=== PATIENT | male | born 1970 | race Caucasian/White ===

== ENCOUNTER → 2016-11-23 | Outpatient (CLI) | payer OTHER ==
--- NOTE | 2016-11-23 13:26 | RAD ---
Right knee, 2 views, 11/23/2016: History: Knee pain, remote injury No fracture or dislocation is identified. No significant arthritic change is evident. The soft tissues are unremarkable. IMPRESSION: No significant right knee abnormality is detected. Lumbar spine, 2 views, 11/23/2016: History: Back pain The lumbar vertebral heights are well-maintained. There is minimal marginal spurring in the lower lumbar spine. There is minimal narrowing of the L5-S1 disc space. The other disc spaces are well preserved. The paraspinous soft tissues are unremarkable. IMPRESSION: 1. Minimal degenerative change. 2. No acute bony abnormality is detected.
== END | disposition home or self-care (01) ==
LOC: RAD 08:59
PROVIDERS: ATTEND Surgery
DX: M47.896 Other spondylosis, lumbar region (principal); M25.561 Pain in right knee
CPT/HCPCS: 72100; 73560

== ENCOUNTER 2017-06-25 14:05 | Emergency (ER) | payer SELFPAY ==
[~2017-06-25] VITALS: Ht 165.1 cm; Wt 65.8 kg
[2017-06-25 15:43] VITALS: BP 135/87
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
== END 2017-06-25 15:44 | disposition home or self-care (01) ==
LOC: ER 14:05
DX: S00.83XA Contusion of other part of head, initial encounter (principal); G89.29 Other chronic pain; F10.10 Alcohol abuse, uncomplicated; F17.200 Nicotine dependence, unspecified, uncomplicated; Y08.89XA Assault by other specified means, initial encounter; Y93.89 Activity, other specified; Y99.8 Other external cause status; Y92.89 Other specified places as the place of occurrence of the external cause
CPT/HCPCS: 99284

== ENCOUNTER 2020-10-03 21:24 | Observation (INO) | payer SELFPAY ==
[~2020-10-03] VITALS: Ht 165.1 cm; Wt 61.4 kg
--- NOTE | 2020-10-03 21:55 | PHYS DOC ---
Past Medical History Past Medical History: Other Additional Past Medical Histor: CHRONIC BACK PAIN Past Surgical History: Other Additional Past Surgical Histo: KNEE Smoking Status: Current Every Day Smoker Alcohol Use: Heavy Drug Use: None General Adult EDM: Chief Complaint: CHEST PAIN HPI: HPI: Patient is a 50 year old male with a past medical history of hypertension but currently on no antihypertensives presents with a chief complaint of chest pain. Patient states pain started approximately 1 hour prior to arrival. Patient describes pain as a dull 7 8 out of 10 left chest with radiation to left neck and down left arm. Patient states he initially had some shortness of breath and some nausea but denied any diaphoresis. Patient states pain has been present since onset. Patient called 911 EMS treated with Nitropaste and aspirin. At the time my exam patient states pain is a dull 4 out of 10. Patient's initial blood pressure was greater than 200 systolic. Patient denies any previous cardiac history. Patient states he has long standing history of cardiac disease. Patient is a smoker and occasional alcohol drinker. Review of Systems: Review of Systems: Review of systems: Constitutional symptoms- No fever, no chills. Eyes- No Discharge, No Visual Loss Respiratory symptoms- Positive shortness of breath, No wheezing, No Dyspnea on Exertion Cardiovascular Systems; Positive chest pain, No Palpitations, No syncope Gastrointestinal symptoms: NO abdominal pain, no nausea, no vomiting or d iarrhea. Genitourinary symptoms: No dysuria. Musculoskeletal symptoms: No back pain Positive extremity pain. NEUROLOGICAL Symptoms: No headache, no generalized weakness; No focal Weakness Heart Score: HEART Score for Chest Pain: HEART Score for Chest Pain Response (Comments) Value History Highly Suspicious 2 ECG Normal 0 Age >45 - < 65 1 Risk Factors 1 or 2 Risk Factors 1 Total 4 Risk Factors: Risk Factors: DM, Current or recent (<one month) smoker, HTN, HLP, family history of CAD, obesity. Risk Scores: Score 0 - 3: 2.5% MACE over next 6 weeks - Discharge Home Score 4 - 6: 20.3% MACE over next 6 weeks - Admit for Clinical Observation Score 7 - 10: 72.7% MACE over next 6 weeks - Early Invasive Strategies Allergies: Allergies: Allergies Coded Allergies Type Severity Reaction Last Updated Verified No Known Drug Allergies 06/25/17 No Physical Exam: PE: Constitutional: Well developed, well nourished, no acute distress, non-toxic appearance. [] HENT: Normocephalic, atraumatic, bilateral external ears normal, oropharynx moist, no oral exudates, nose normal. [] Eyes: PERRLA, EOMI, conjunctiva normal, no discharge. [] Neck: Normal range of motion, no tenderness, supple, no stridor. [] Cardiovascular:Heart rate regular rhythm, no murmur [] Lungs & Thorax: Bilateral breath sounds clear to auscultation [] Abdomen: Bowel sounds normal, soft, no tenderness, no masses, no pulsatile masses. [] Skin: Warm, dry, no erythema, no rash. [] Back: No tenderness, no CVA tenderness. [] Extremities: No tenderness, no cyanosis, no clubbing, ROM intact, no edema. [] Neurologic: Alert and oriented X 3, normal motor function, normal sensory function, no focal deficits noted. [] Psychologic: Affect normal, judgement normal, mood normal. [] EKG: EKG: EKG performed at 2134 heart rate [address] elevation no ST depression no acute PA [] Radiology/Procedures: Radiology/Procedures: [] Impression: MPRESSION: No acute process. There is a 2 x 1 cm triangular linear density at t he right lung base could represent a region of atelectasis/scarring, a pulmonary nodule is not excluded. Follow-up PA lateral chest x-rays could assess this further. Electronically signed by: Paolo Hanna MD (10/03/2020 10:09 PM) [facility] [place] Course & Med Decision Making: Course & Med Decision Making Pertinent Labs and Imaging studies reviewed. (See chart for details) [] Patient was evaluated for chief complaint. Work-up consisted of laboratory analysis radiologic imaging and EKG. Results reviewed and discussed with patient. Patient's EKG without acute ischemic changes. Initial troponin within normal limits. Patient was treated with aspirin and Nitropaste by EMS. Treatment in the ER included labetalol for blood pressure which was greater than 200 systolic and morphine for pain. Patient was admitted to the hospitalist with a cardiology consult. Jannie Disclaimer: Jannie Disclaimer: This electronic medical record was generated, in whole or in part, using a voice recognition dictation system. Departure Departure Impression: Primary Impression: Chest pain Disposition: ADMITTED INPT THIS HOSP Admitting Physician: JUAN JOSÉ Condition: STABLE Referrals: UNKNOWN PCP NAME (PCP) Patient Instructions: Chest Pain (Nonspecific) MARIAM CHARLES DO Oct 03, 2020 21:54
--- NOTE | 2020-10-03 22:12 | RAD ---
AP chest x-ray HISTORY: Chest pain. FINDINGS: Heart size normal. Aortic arch calcified plaque. No pneumothorax. No pleural effusions. 2 x 1 cm mild linear triangular density right lung base could represent a region of atelectasis or scarr ing, would be an unusual morphology for a pulmonary nodule. Bones are unremarkable. IMPRESSION: No acute process. There is a 2 x 1 cm triangular linear density at the right lung base co uld represent a region of atelectasis/scarring, a pulmonary nodule is not excluded. Follow-up PA late ral chest x-rays could assess this further. Electronically signed by: Paolo Hanna MD (10/03/2020 10:09 PM) [facility]
[2020-10-03 22:13] LABS: CALCIUM 9.1 mg/dL (8.5-10.1); CREATININE 0.8 mg/dL (0.7-1.3); GFR 102.3; POTASSIUM 3.5 mmol/L (3.5-5.1)
[2020-10-03] MEDS ORDERED: MORPHINE SULFATE 4 MG/ML VIAL. IV ONE (22:15)
[2020-10-03 22:19] LABS: ALBUMIN 3.8 g/dL (3.4-5.0); ALBUMIN/GLOBULIN RATIO 1.1 (1.0-1.7); MAGNESIUM 1.8 mg/dL (1.8-2.4); TOTAL BILIRUBIN 0.6 mg/dL (0.2-1.0); TOTAL PROTEIN 7.4 g/dL (6.4-8.2)
[2020-10-03] MEDS ORDERED: LABETALOL 20 MG/4 ML DISP.SYRIN. IVP ONE (22:30)
[2020-10-03] MEDS ORDERED: MORPHINE SULFATE 4 MG/ML VIAL. IV PRN (22:30)
[2020-10-03] MEDS ORDERED: ONDANSETRON PF 4 MG/2 ML VIAL. IV PRN (22:30)
[2020-10-03 22:33] LABS: BASO % 1 % (0-3); EOS # 0.1 x10^3/uL (0.0-0.7); EOS % 2 % (0-3); HEMATOCRIT 43.2 % (39.0-53.0); LYMPH # 0.9 x10^3/uL (1.0-4.8); LYMPH % 11 % (24-48); MEAN CORPUSCULAR HEMOGLOBIN 33 pg (25-35); MEAN CORPUSCULAR HGB CONC 35 g/dL (31-37); MEAN CORPUSCULAR VOLUME 96 fL (79-100); MONO # 0.7 x10^3/uL (0.0-1.1); MONO % 9 % (0-9); NEUT # 6.2 x10^3/uL (1.8-7.7); NEUT % 78 % (31-73); PLATELET COUNT 238 x10^3/uL (140-400); RED CELL DISTRIBUTION WIDTH 12.4 % (11.5-14.5); WHITE BLOOD COUNT 7.9 x10^3/uL (4.0-11.0)
[2020-10-03 22:42] LABS: PROTHROMBIN TIME PATIENT 11.8 SEC (11.7-14.0)
[2020-10-03 23:28] VITALS: BP 170/85
--- NOTE | 2020-10-04 00:53 | EKG ---
[facility] [address] [place] [address] Test Date: 2020-10-03 Test Time: 21:34:45 Pat Name: RUTH MANCINI Department: Room: Gender: M Feeder Associate: : 1970 Requested By: MARIAM CHARLES Order Number: [id number] Reading MD: Measurements Intervals [place] Rate: 59 P: 52 VA: 144 QRS: 47 QRSD: 88 T: 57 QT: 416 QTc: 412 Interpretive Statements SINUS RHYTHM NO SPECIFIC ECG ABNORMALITIES RI6.01 No previous ECG available for comparison
[2020-10-04 03:15] VITALS: BP 147/82
[2020-10-04 07:00] VITALS: BP 174/88
[2020-10-04 07:50] LABS: CHOLESTEROL/HDL RATIO 1.9
--- NOTE | 2020-10-04 11:11 | PDOC1 ---
History and Physical Date of Admission Date of Admission DATE: 10/04/20 TIME: 11:10 Identification/Chief Complaint Chief Complaint 50 year old male with a past medical history of hypertension but currently on no antihypertensives presents with a chief complaint of chest pain. Patient states pain started approximately 1 hour prior to arrival. Patient describes pain as a dull 7 8 out of 10 left chest with radiation to left neck and down left arm. , some shortness of breath and some nausea but denied any diaphoresis. Patient called 911 EMS treated with Nitropaste and aspirin. Patient's initial blood pressure was greater than 200 systolic. BETTER WITH NORVASC Denies excessive alcohol use to me Past Medical History Past Medical History Past Medical History Past Medical History: Other Additional Past Medical Histor: CHRONIC BACK PAIN Past Surgical History: Other Additional Past Surgical Histo: KNEE Smoking Status: Current Every Day Smoker Alcohol Use: Heavy Drug Use: None FHX COPD Family History Family History: Heart Disease Social History Smoke: <1 pack per day ALCOHOL: occassional Drugs: None Current Problem List Problem List Problems Medical Problems: (1) Chest pain Status: Acute Current Medications Current Medications Current Medications Morphine Sulfate (Morphine Sulfate) 4 mg 1X ONCE IV Last administered on 10/03/20at 22:18; Start 10/03/20 at 22:15; Stop 10/03/20 at 22:16; Status DC Labetalol HCl (Normodyne Iv Push) 20 mg 1X ONCE IVP Last administered on 10/03/20at 22:19; Start 10/03/20 at 22:30; Stop 10/03/20 at 22:31; Status DC Ondansetron HCl (Zofran) 4 mg PRN Q8HRS PRN IV NAUSEA/VOMITING 1ST CHOICE; Start 10/03/20 at 22:30; Stop 10/04/20 at 22:29 Morphine Sulfate (Morphine Sulfate) 4 mg PRN Q2HR PRN IV SEVERE PAIN 7-10 Last administered on 10/04/20at 06:17; Start 10/03/20 at 22:30; Stop 10/04/20 at 22:29 Nitroglycerin (Nitrostat) 0.4 mg PRN Q5MIN PRN SL CHEST PAIN; Start 10/03/20 at 22:30; Stop 10/04/20 at 22:29 Amlodipine Besylate (Norvasc) 5 mg DAILY PO Last administered on 10/04/20at 08:38; Start 10/04/20 at 09:00 Active Scripts Active Reported No Known Medications Prior To Admisstion (Info) Each 1 Each DAILY Allergies Allergies: Coded Allergies: No Known Drug Allergies (Unverified , 06/25/17) ROS General: No: Chills, Night Sweats, Fatigue, Malaise, Appetite, Other PSYCHOLOGICAL ROS: No: Anxiety, Behavioral Disorder, Concentration difficultie, Decreased libido, Depression, Disorientation, Hallucinations, Hostility, Irritablity, Memory difficulties, Mood Swings, Obsessive thoughts, Physical abuse, Sexual abuse, Sleep disturbances, Suicidal ideation, Other Eyes: No Blurry vision, No Decreased vision, No Double vision, No Dry eyes, No Excessive tearing, No Eye Pain, No Itchy Eyes, No Loss of vision, No Photophobia, No Scotomata, No Uses contacts, No Uses glasses, No Other HEENT: No: Heacaches, Visual Changes, Hearing change, Nasal congestion, Nasal discharge, Oral lesions, Sinus pain, Sore Throat, Epistaxis, Sneezing, Snoring, Tinnitus, Vertigo, Vocal changes, Other ALLERGY AND IMMUNOLOGY: No: Hives, Insect Bite Sensitivity, Itchy/Watery Eyes, Nasal Congestion, Post Nasal Drip, Seasonal Allergies, Other Hematological and Lymphatic: No: Bleeding Problems, Blood Clots, Blood Transfusions, Brusing, Night Sweats, Pallor, Swollen Lymph Nodes, Other ENDOCRINE: No: Breast Changes, Galactorrhea, Hair Pattern Changes, Hot Flashes, Malaise/lethargy, Mood Swings, Palpitations, Polydipsia/polyuria, Skin Changes, Temperature Intolerance, Unexpected Weight Changes, Other Breast: No New/Changing Breast Lumps, No Nipple changes, No Nipple discharge, No Other Respiratory: No: Cough, Hemoptysis, Orthopnea, Pleuritic Pain, Shortness of breath, SOB with excertion, Sputum Changes, Stridor, Tachypnea, Wheezing, Other Cardiovascular: No Chest Pain, No Palpitations, No Orthopnea, No Paroxysmal Noc. Dyspnea, No Edema, No Lt Headedness, No Other Gastrointestinal: No Nausea, No Vomiting, No Abdominal Pain, No Diarrhea, No Co nstipation, No Melena, No Hematochezia, No Other Genitourinary: No Dysuria, No Frequency, No Incontinence, No Hematuria, No Retention, No Discharge, No Urgency, No Pain, No Flank Pain, No Other, No , No , No , No , No , No , No Musculoskeletal: Yes Pain In: (low back pain); No Gait Disturbance, No Joint Pain, No Joint Stiffness, No Joint Swelling, No Muscle Pain, No Muscular Weakness, No Swelling In:, No Other Neurological: No Behavorial Changes, No Bowel/Bladder ControlChng, No Confusion, No Dizziness, No Gait Disturbance, No Headaches, No Impaired Coord/balance, No Memory Loss, No Numbness/Tingling, No Seizures, No Speech Problems, No Tremors, No Visual Changes, No Weakness, No Other Skin: No Dry Skin, No Eczema, No Hair Changes, No Lumps, No Mole Changes, No Mottling, No Nail Changes, No Pruritus, No Rash, No Skin Lesion Changes, No Other, No Acne Physical Exam Physical Exam Constitutional: Well developed, well nourished, no acute distress, non-toxic appearance. [] HENT: Normocephalic, atraumatic, bilateral external ears normal, oropharynx moist, no oral exudates, nose normal. [] Eyes: PERRLA, EOMI, conjunctiva normal, no discharge. [] Neck: Normal range of motion, no tenderness, supple, no stridor. [] Cardiovascular:Heart rate regular rhythm, no murmur [] Lungs & Thorax: Bilateral breath sounds clear to auscultation [] Abdomen: Bowel sounds normal, soft, no tenderness, no masses, no pulsatile masses. [] Skin: Warm, dry, no erythema, no rash. [] Back: No tenderness, no CVA tenderness. [] Extremities: No tenderness, no cyanosis, no clubbing, ROM intact, no edema. [] Neurologic: Alert and oriented X 3, normal motor function, normal sensory function, no focal deficits noted. [] Psychologic: Affect normal, judgment normal, mood normal. [] General: Alert, Oriented X3, Cooperative, No acute distress HEENT: Atraumatic, EOMI, Mucous membr. moist/pink Lungs: Clear to auscultation, Normal air movement Heart: RRR, no thrills Abdomen: Normal bowel sounds, Soft Rectal Exam: not examined, deferred PELVIC: Examination not indicated Extremities: No cyanosis Neuro: Normal speech, Cranial nerves 3-12 NL Psych/Mental Status: Mental status NL, Mood NL Vitals Vitals Vital Signs Date Time Temp Pulse Resp B/P (MAP) Pulse Ox O2 Delivery O2 Flow Rate FiO2 10/04/20 08:38 73 172/93 10/04/20 07:35 Room Air 10/04/20 07:00 98.9 18 96 98.9 Labs Labs Laboratory Tests Test 10/03/20 21:40 10/03/20 22:26 10/04/20 00:30 10/04/20 07:05 Sodium Level 138 mmol/L (136-145) Potassium Level 3.5 mmol/L (3.5-5.1) Chloride Level 102 mmol/L (98-107) Carbon Dioxide Level 27 mmol/L (21-32) Anion Gap 9 (6-14) Blood Urea Nitrogen 7 mg/dL (8-26) Creatinine 0.8 mg/dL (0.7-1.3) Estimated GFR (Cockcroft-Gault) 102.3 BUN/Creatinine Ratio 9 (6-20) Glucose Level 115 mg/dL (70-99) Calcium Level 9.1 mg/dL (8.5-10.1) Magnesium Level 1.8 mg/dL (1.8-2.4) Total Bilirubin 0.6 mg/dL (0.2-1.0) Aspartate Amino Transf (AST/SGOT) 71 U/L (15-37) Alanine Aminotransferase (ALT/SGPT) 88 U/L (16-63) Alkaline Phosphatase 103 U/L (46-116) Troponin I Quantitative < 0.017 ng/mL (0.000-0.055) < 0.017 ng/mL (0.000-0.055) < 0.017 ng/mL (0.000-0.055) Total Protein 7.4 g/dL (6.4-8.2) Albumin 3.8 g/dL (3.4-5.0) Albumin/Globulin Ratio 1.1 (1.0-1.7) White Blood Count 7.9 x10^3/uL (4.0-11.0) Red Blood Count 4.50 x10^6/uL (4.30-5.70) Hemoglobin 15.0 g/dL (13.0-17.5) Hematocrit 43.2 % (39.0-53.0) Mean Corpuscular Volume 96 fL (79-100) Mean Corpuscular Hemoglobin 33 pg (25-35) Mean Corpuscular Hemoglobin Concent 35 g/dL (31-37) Red Cell Distribution Width 12.4 % (11.5-14.5) Platelet Count 238 x10^3/uL (140-400) Neutrophils (%) (Auto) 78 % (31-73) Lymphocytes (%) (Auto) 11 % (24-48) Monocytes (%) (Auto) 9 % (0-9) Eosinophils (%) (Auto) 2 % (0-3) Basophils (%) (Auto) 1 % (0-3) Neutrophils # (Auto) 6.2 x10^3/uL (1.8-7.7) Lymphocytes # (Auto) 0.9 x10^3/uL (1.0-4.8) Monocytes # (Auto) 0.7 x10^3/uL (0.0-1.1) Eosinophils # (Auto) 0.1 x10^3/uL (0.0-0.7) Basophils # (Auto) 0.0 x10^3/uL (0.0-0.2) Prothrombin Time 11.8 SEC (11.7-14.0) Prothromb Time International Ratio 0.9 (0.8-1.1) Activated Partial Thromboplast Time 26 SEC (24-38) Triglycerides Level 59 mg/dL (0-150) Cholesterol Level 203 mg/dL (0-200) LDL Cholesterol, Calculated 83 mg/dL (0-100) VLDL Cholesterol, Calculated 12 mg/dL (0-40) Non-HDL Cholesterol Calculated 95 mg/dL (0-129) HDL Cholesterol 108 mg/dL (40-60) Cholesterol/HDL Ratio 1.9 Laboratory Tests Test 10/03/20 21:40 10/03/20 22:26 10/04/20 00:30 10/04/20 07:05 Sodium Level 138 mmol/L (136-145) Potassium Level 3.5 mmol/L (3.5-5.1) Chloride Level 102 mmol/L (98-107) Carbon Dioxide Level 27 mmol/L (21-32) Anion Gap 9 (6-14) Blood Urea Nitrogen 7 mg/dL (8-26) Creatinine 0.8 mg/dL (0.7-1.3) Estimated GFR (Cockcroft-Gault) 102.3 BUN/Creatinine Ratio 9 (6-20) Glucose Level 115 mg/dL (70-99) Calcium Level 9.1 mg/dL (8.5-10.1) Magnesium Level 1.8 mg/dL (1.8-2.4) Total Bilirubin 0.6 mg/dL (0.2-1.0) Aspartate Amino Transf (AST/SGOT) 71 U/L (15-37) Alanine Aminotransferase (ALT/SGPT) 88 U/L (16-63) Alkaline Phosphatase 103 U/L (46-116) Troponin I Quantitative < 0.017 ng/mL (0.000-0.055) < 0.017 ng/mL (0.000-0.055) < 0.017 ng/mL (0.000-0.055) Total Protein 7.4 g/dL (6.4-8.2) Albumin 3.8 g/dL (3.4-5.0) Albumin/Globulin Ratio 1.1 (1.0-1.7) White Blood Count 7.9 x10^3/uL (4.0-11.0) Red Blood Count 4.50 x10^6/uL (4.30-5.70) Hemoglobin 15.0 g/dL (13.0-17.5) Hematocrit 43.2 % (39.0-53.0) Mean Corpuscular Volume 96 fL (79-100) Mean Corpuscular Hemoglobin 33 pg (25-35) Mean Corpuscular Hemoglobin Concent 35 g/dL (31-37) Red Cell Distribution Width 12.4 % (11.5-14.5) Platelet Count 238 x10^3/uL (140-400) Neutrophils (%) (Auto) 78 % (31-73) Lymphocytes (%) (Auto) 11 % (24-48) Monocytes (%) (Auto) 9 % (0-9) Eosinophils (%) (Auto) 2 % (0-3) Basophils (%) (Auto) 1 % (0-3) Neutrophils # (Auto) 6.2 x10^3/uL (1.8-7.7) Lymphocytes # (Auto) 0.9 x10^3/uL (1.0-4.8) Monocytes # (Auto) 0.7 x10^3/uL (0.0-1.1) Eosinophils # (Auto) 0.1 x10^3/uL (0.0-0.7) Basophils # (Auto) 0.0 x10^3/uL (0.0-0.2) Prothrombin Time 11.8 SEC (11.7-14.0) Prothromb Time International Ratio 0.9 (0.8-1.1) Activated Partial Thromboplast Time 26 SEC (24-38) Triglycerides Level 59 mg/dL (0-150) Cholesterol Level 203 mg/dL (0-200) LDL Cholesterol, Calculated 83 mg/dL (0-100) VLDL Cholesterol, Calculated 12 mg/dL (0-40) Non-HDL Cholesterol Calculated 95 mg/dL (0-129) HDL Cholesterol 108 mg/dL (40-60) Cholesterol/HDL Ratio 1.9 Images Images PATIENT: RUTH MANCINI ACCOUNT: [id number] : 1970 LOCATION: ER AGE: 50 SEX: M EXAM STATUS: PRE ER ORD. PHYSICIAN: MARIAM CHARLES DO REASON: chest pain PROCEDURE: CHEST AP ONLY AP chest x-ray HISTORY: Chest pain. FINDINGS: Heart size normal. Aortic arch calcified plaque. No pneumothorax. No pleural effusions. 2 x 1 cm mild linear triangular density right lung base could represent a region of atelectasis or scarring, would be an unusual morphology for a pulmonary nodule. Bones are unremarkable. IMPRESSION: No acute process. There is a 2 x 1 cm triangular linear density at the right lung base could represent a region of atelectasis/scarring, a pulmonary nodule is not excluded. Follow-up PA lateral chest x-rays could assess this further. Electronically signed by: Irving Hanna MD (10/03/2020 10:09 PM) [facility] [place] SIGNED BY: IRVING HANNA MD DATE: 10/03/20 [id number] VTE Prophylaxis Ordered VTE Prophylaxis Devices: No VTE Pharmacological Prophylaxi: Yes Assessment/Plan Assessment/Plan Impression: Chest pain COPD UNCONTROLLED HTN 2 x 1 cm triangular linear density at the right lung base could represent a region of atelectasis/scarring, a pulmonary nodule is not excluded. ct chest planned inc LFT'S likely sec to etoh hyperlipidemia ADMITTED cvc bed SERIAL TROPONIN I CT CHEST Cardiology consult CT CHEST cardiac cath tuesday Pulm consult dvt prophylaxis, lovenox PROTONIX 40 MG PO Q AM iv prn hydralazine 10mg q 4 hrs prn bp support estimte length of stay > 3 midnights begin lipitor 20 mg po q hs encouraged reduced etoh consumption and smoking cessation Justifications for Admission Other Justification DERIK GERMAIN MD Oct 04, 2020 11:11
[2020-10-04 11:15] VITALS: BP 172/88
[2020-10-04] MEDS ORDERED: MAG HYDROX/ALUMINUM HYD/SIMETH 30 ML ORAL.SUSP PO PRN (11:30)
[2020-10-04] MEDS ORDERED: ACETAMINOPHEN 325 MG TABLET. PO PRN (11:30)
[2020-10-04] MEDS ORDERED: ONDANSETRON PF 4 MG/2 ML VIAL. IV PRN (11:30)
[2020-10-04] MEDS ORDERED: DOCUSATE SODIUM 100 MG CAPSULE. PO PRN (11:30)
[2020-10-04] MEDS ORDERED: hydrALAZINE 20 MG/ML VIAL. IVP PRN (11:30)
[2020-10-04] MEDS ORDERED: SODIUM PHOSPHATES 19/7GM 133 ML ENEMA. PR PRN (11:30)
[2020-10-04] MEDS ORDERED: LORazepam 0.5 MG TABLET PO PRN (11:30)
[2020-10-04] MEDS ORDERED: 0.9 % SODIUM CHLORIDE 10 ML DISP.SYRIN. IV PRN (11:30)
[2020-10-04] MEDS ORDERED: guaiFENesin ORAL 200 MG/10 ML LIQUID. PO PRN (11:30)
[2020-10-04] MEDS ORDERED: cloNIDine HCL 0.1 MG TABLET PO PRN (11:30)
[2020-10-04] MEDS: PANTOPRAZOLE 40 MG TABLET.DR. PO SCH (12:00)
[2020-10-04] MEDS: NITROGLYCERIN SUBLINGUAL 0.4 MG BOTTLE OF 25. SL PRN ×2 (13:38→14:03)
[2020-10-04 14:32] VITALS: BP 146/94
[2020-10-04] MEDS: IPRATRPIUM/ALBUTEROL 0.5/2.5MG 3 ML NEBU. NEB SCH ×2 (16:05→19:51)
[2020-10-04] MEDS: ENOXAPARIN 40 MG/0.4 ML SYRINGE. SQ SCH (17:06)
--- NOTE | 2020-10-04 17:20 | PDOC2 ---
CONSULT Date of Consult Date of Consult DATE: 10/04/20 TIME: 17:15 Reason for Consult Reason for Consult: Chest pain and hypertension Referring Physician Referring Physician: Dr. Harris Identification/Chief Complaint Chief Complaint Chest pain Source Source: Chart review, Patient History of Present Illness Reason for Visit: 50-year-old male without any previous cardiac history presented complaining of left-sided retrosternal chest pressure radiating to left arm, left neck and jaw not related to exertion and associated with mild shortness of breath. This was 8/10 severity when it first started and is currently at 5/10 severity and intermittent. He denied any orthopnea/PND, palpitations or syncope. He stated that the pain was slightly relieved with nitroglycerin given to him in ED. Past Medical History Past Medical History Hypertension Chronic back pain Past Surgical History Past Surgical History Knee surgery Family History Family History Positive for premature coronary disease Family History: Heart Disease Social History Social History Patient admitted to smoking and social intake of alcohol but denied any drug use <1 pack per day ALCOHOL: occassional Drugs: None Current Problem List Problem List Problems Medical Problems: (1) Chest pain Status: Acute Current Medications Current Medications Current Medications Morphine Sulfate (Morphine Sulfate) 4 mg 1X ONCE IV Last administered on 10/03/20at 22:18; Start 10/03/20 at 22:15; Stop 10/03/20 at 22:16; Status DC Labetalol HCl (Normodyne Iv Push) 20 mg 1X ONCE IVP Last administered on 10/03/20at 22:19; Start 10/03/20 at 22:30; Stop 10/03/20 at 22:31; Status DC Ondansetron HCl (Zofran) 4 mg PRN Q8HRS PRN IV NAUSEA/VOMITING 1ST CHOICE; Start 10/03/20 at 22:30; Stop 10/04/20 at 22:29 Morphine Sulfate (Morphine Sulfate) 4 mg PRN Q2HR PRN IV SEVERE PAIN 7-10 Last administered on 10/04/20at 06:17; Start 10/03/20 at 22:30; Stop 10/04/20 at 22:29 Nitroglycerin (Nitrostat) 0.4 mg PRN Q5MIN PRN SL CHEST PAIN Last administered on 10/04/20at 14:03; Start 10/03/20 at 22:30; Stop 10/04/20 at 22:29 Amlodipine Besylate (Norvasc) 5 mg DAILY PO Last administered on 10/04/20at 08:38; Start 10/04/20 at 09:00 Hydralazine HCl (Apresoline Inj) 10 mg PRN Q4HRS PRN IVP ELEVATED BP, SEE COMMENTS Last administered on 10/04/20at 12:07; Start 10/04/20 at 11:30 Sodium Chloride (Normal Saline Flush) 3 ml QSHIFT PRN IV AFTER MEDS AND BLOOD DRAWS; Start 10/04/20 at 11:30 Ondansetron HCl (Zofran) 4 mg PRN Q4HRS PRN IV NAUSEA/VOMITING; Start 10/04/20 at 11:30 Acetaminophen (Tylenol) 650 mg PRN Q4HRS PRN PO TEMP OVER 100.4F OR MILD PAIN; Start 10/04/20 at 11:30 Al Hydroxide/Mg Hydroxide (Mylanta Plus Xs) 30 ml PRN DAILY PRN PO HEARTBURN / GAS; Start 10/04/20 at 11:30 Clonidine HCl (Catapres) 0.1 mg PRN Q6HRS PRN PO SBP>160 OR DBP>90; Start 10/04/20 at 11:30 Sodium Monofluorophosphate (Fleet Adult) 133 ml PRN DAILY PRN MA CONSTIPATION; Start 10/04/20 at 11:30 Docusate Sodium (Colace) 100 mg PRN BID PRN PO HARD STOOLS; Start 10/04/20 at 11:30 Albuterol/ Ipratropium (Duoneb) 3 ml Q4HRS W/A NEB Last administered on 10/04/20at 16:05; Start 10/04/20 at 14:00 Guaifenesin (Robitussin) 200 mg PRN Q4HRS PRN PO COUGH; Start 10/04/20 at 11:30 Lorazepam (Ativan) 0.5 mg PRN Q4HRS PRN PO ANXIETY / AGITATION; Start 10/04/20 at 11:30 Enoxaparin Sodium (Lovenox 40mg Syringe) 40 mg Q24H SQ Last administered on 10/04/20at 17:06; Start 10/04/20 at 16:00 Pantoprazole Sodium (Protonix) 40 mg DAILYAC PO Last administered on 10/04/20at 12:00; Start 10/04/20 at 12:00 Atorvastatin Calcium (Lipitor) 20 mg QHS PO ; Start 10/04/20 at 21:00 Active Scripts Active Reported No Known Medications Prior To Admisstion (Info) Each 1 Each DAILY Allergies Allergies: Coded Allergies: No Known Drug Allergies (Unverified , 06/25/17) ROS PSYCHOLOGICAL ROS: No: Hallucinations Eyes: No Loss of vision HEENT: No: Epistaxis Respiratory: YES: Shortness of breath; No: Hemoptysis Cardiovascular: yes Chest Pain Gastrointestinal: No Vomiting Genitourinary: No Hematuria Neurological: Yes Dizziness; No Seizures Skin: No Rash Physical Exam General: Alert, Oriented X3 HEENT: Atraumatic Lungs: Clear to auscultation Heart: Regular rate, No murmurs Abdomen: Soft Extremities: No edema Psych/Mental Status: Mood NL Vitals VITALS Vital Signs Date Time Temp Pulse Resp B/P (MAP) Pulse Ox O2 Delivery O2 Flow Rate FiO2 10/04/20 16:08 98 Room Air 10/04/20 14:32 98.6 69 18 146/94 (111) 98.6 Labs Labs Laboratory Tests Test 10/03/20 21:40 10/03/20 22:26 10/04/20 00:30 10/04/20 07:05 Sodium Level 138 mmol/L (136-145) Potassium Level 3.5 mmol/L (3.5-5.1) Chloride Level 102 mmol/L (98-107) Carbon Dioxide Level 27 mmol/L (21-32) Anion Gap 9 (6-14) Blood Urea Nitrogen 7 mg/dL (8-26) Creatinine 0.8 mg/dL (0.7-1.3) Estimated GFR (Cockcroft-Gault) 102.3 BUN/Creatinine Ratio 9 (6-20) Glucose Level 115 mg/dL (70-99) Calcium Level 9.1 mg/dL (8.5-10.1) Magnesium Level 1.8 mg/dL (1.8-2.4) Total Bilirubin 0.6 mg/dL (0.2-1.0) Aspartate Amino Transf (AST/SGOT) 71 U/L (15-37) Alanine Aminotransferase (ALT/SGPT) 88 U/L (16-63) Alkaline Phosphatase 103 U/L (46-116) Troponin I Quantitative < 0.017 ng/mL (0.000-0.055) < 0.017 ng/mL (0.000-0.055) < 0.017 ng/mL (0.000-0.055) Total Protein 7.4 g/dL (6.4-8.2) Albumin 3.8 g/dL (3.4-5.0) Albumin/Globulin Ratio 1.1 (1.0-1.7) White Blood Count 7.9 x10^3/uL (4.0-11.0) Red Blood Count 4.50 x10^6/uL (4.30-5.70) Hemoglobin 15.0 g/dL (13.0-17.5) Hematocrit 43.2 % (39.0-53.0) Mean Corpuscular Volume 96 fL (79-100) Mean Corpuscular Hemoglobin 33 pg (25-35) Mean Corpuscular Hemoglobin Concent 35 g/dL (31-37) Red Cell Distribution Width 12.4 % (11.5-14.5) Platelet Count 238 x10^3/uL (140-400) Neutrophils (%) (Auto) 78 % (31-73) Lymphocytes (%) (Auto) 11 % (24-48) Monocytes (%) (Auto) 9 % (0-9) Eosinophils (%) (Auto) 2 % (0-3) Basophils (%) (Auto) 1 % (0-3) Neutrophils # (Auto) 6.2 x10^3/uL (1.8-7.7) Lymphocytes # (Auto) 0.9 x10^3/uL (1.0-4.8) Monocytes # (Auto) 0.7 x10^3/uL (0.0-1.1) Eosinophils # (Auto) 0.1 x10^3/uL (0.0-0.7) Basophils # (Auto) 0.0 x10^3/uL (0.0-0.2) Prothrombin Time 11.8 SEC (11.7-14.0) Prothromb Time International Ratio 0.9 (0.8-1.1) Activated Partial Thromboplast Time 26 SEC (24-38) Triglycerides Level 59 mg/dL (0-150) Cholesterol Level 203 mg/dL (0-200) LDL Cholesterol, Calculated 83 mg/dL (0-100) VLDL Cholesterol, Calculated 12 mg/dL (0-40) Non-HDL Cholesterol Calculated 95 mg/dL (0-129) HDL Cholesterol 108 mg/dL (40-60) Cholesterol/HDL Ratio 1.9 Test 10/04/20 12:10 Troponin I Quantitative < 0.017 ng/mL (0.000-0.055) Laboratory Tests Test 10/03/20 21:40 10/03/20 22:26 10/04/20 00:30 10/04/20 07:05 Sodium Level 138 mmol/L (136-145) Potassium Level 3.5 mmol/L (3.5-5.1) Chloride Level 102 mmol/L (98-107) Carbon Dioxide Level 27 mmol/L (21-32) Anion Gap 9 (6-14) Blood Urea Nitrogen 7 mg/dL (8-26) Creatinine 0.8 mg/dL (0.7-1.3) Estimated GFR (Cockcroft-Gault) 102.3 BUN/Creatinine Ratio 9 (6-20) Glucose Level 115 mg/dL (70-99) Calcium Level 9.1 mg/dL (8.5-10.1) Magnesium Level 1.8 mg/dL (1.8-2.4) Total Bilirubin 0.6 mg/dL (0.2-1.0) Aspartate Amino Transf (AST/SGOT) 71 U/L (15-37) Alanine Aminotransferase (ALT/SGPT) 88 U/L (16-63) Alkaline Phosphatase 103 U/L (46-116) Troponin I Quantitative < 0.017 ng/mL (0.000-0.055) < 0.017 ng/mL (0.000-0.055) < 0.017 ng/mL (0.000-0.055) Total Protein 7.4 g/dL (6.4-8.2) Albumin 3.8 g/dL (3.4-5.0) Albumin/Globulin Ratio 1.1 (1.0-1.7) White Blood Count 7.9 x10^3/uL (4.0-11.0) Red Blood Count 4.50 x10^6/uL (4.30-5.70) Hemoglobin 15.0 g/dL (13.0-17.5) Hematocrit 43.2 % (39.0-53.0) Mean Corpuscular Volume 96 fL (79-100) Mean Corpuscular Hemoglobin 33 pg (25-35) Mean Corpuscular Hemoglobin Concent 35 g/dL (31-37) Red Cell Distribution Width 12.4 % (11.5-14.5) Platelet Count 238 x10^3/uL (140-400) Neutrophils (%) (Auto) 78 % (31-73) Lymphocytes (%) (Auto) 11 % (24-48) Monocytes (%) (Auto) 9 % (0-9) Eosinophils (%) (Auto) 2 % (0-3) Basophils (%) (Auto) 1 % (0-3) Neutrophils # (Auto) 6.2 x10^3/uL (1.8-7.7) Lymphocytes # (Auto) 0.9 x10^3/uL (1.0-4.8) Monocytes # (Auto) 0.7 x10^3/uL (0.0-1.1) Eosinophils # (Auto) 0.1 x10^3/uL (0.0-0.7) Basophils # (Auto) 0.0 x10^3/uL (0.0-0.2) Prothrombin Time 11.8 SEC (11.7-14.0) Prothromb Time International Ratio 0.9 (0.8-1.1) Activated Partial Thromboplast Time 26 SEC (24-38) Triglycerides Level 59 mg/dL (0-150) Cholesterol Level 203 mg/dL (0-200) LDL Cholesterol, Calculated 83 mg/dL (0-100) VLDL Cholesterol, Calculated 12 mg/dL (0-40) Non-HDL Cholesterol Calculated 95 mg/dL (0-129) HDL Cholesterol 108 mg/dL (40-60) Cholesterol/HDL Ratio 1.9 Test 10/04/20 12:10 Troponin I Quantitative < 0.017 ng/mL (0.000-0.055) Assessment/Plan Assessment/Plan 1. Accelerated hypertension: Patient has remote history of hypertension and was treated with antihypertensives that were stopped for uncertain reasons in the i nterim. Start amlodipine for better control. Plan 2D echo to assess LV systolic function -could be done as an outpatient. 2. Chest pain with mixed features. Myocardial infarction has been ruled out. Plan for ischemic evaluation once blood pressure is better controlled, possibly as an outpatient. Thank you for your consultation FAWN VENEGAS MD Oct 04, 2020 17:20
--- NOTE | 2020-10-04 19:04 | RAD ---
EXAM: CT Chest without IV contrast INDICATION: Reason: chest pain / Spl. Instructions: / History: TECHNIQUE: Multi-detector row CT images were acquired from the thoracic inlet through the upper abdo men without the use of IV contrast. Sagittal and coronal images were acquired from the transaxial danica a. All CT scans performed at this facility utilize dose optimization techniques as appropriate to the exam, including the following: Automated exposure control and adjustment of the mA and/or KV accordi ng to patient size (this includes techniques or standardized protocols for targeted exams where dose is indication/reason for exam). COMPARISON: None FINDINGS: The absence of IV contrast limits evaluation of soft tissue pathology. CARDIOVASCULAR: Unremarkable MEDIASTINUM & HEAVENLY: No adenopathy or masses. LUNGS: Minimal early emphysematous changes and paraseptal pattern are present. Otherwise no pulmonary infiltrate, nodule, or other focal abnormality. PLEURAL SPACE: No pleural effusions or pneumothorax. OSSEOUS & SOFT TISSUE: Unremarkable ABDOMEN: Included upper abdomen shows diffuse hepatic steatosis. IMPRESSION: Minimal early emphysematous changes. Otherwise unremarkable noncontrast chest CT with no specific cau se for chest pain identified. Incidental hepatic steatosis. Electronically signed by: Viktoria Choi MD (10/04/2020 7:02 PM) [place]
[2020-10-04 19:05] VITALS: BP 162/80
[2020-10-04] MEDS ORDERED: ATORVASTATIN CALCIUM 20 MG TABLET PO SCH (21:00)
[2020-10-04 23:12] VITALS: BP 143/86
[2020-10-05 03:30] VITALS: BP 162/90
[2020-10-05 04:32] LABS: BASO % 1 % (0-3); EOS # 0.2 x10^3/uL (0.0-0.7); EOS % 5 % (0-3); HEMATOCRIT 45.5 % (39.0-53.0); HEMOGLOBIN 15.5 g/dL (13.0-17.5); LYMPH % 20 % (24-48); MEAN CORPUSCULAR HEMOGLOBIN 33 pg (25-35); MEAN CORPUSCULAR HGB CONC 34 g/dL (31-37); MEAN CORPUSCULAR VOLUME 98 fL (79-100); MONO # 0.6 x10^3/uL (0.0-1.1); MONO % 12 % (0-9); NEUT # 3.1 x10^3/uL (1.8-7.7); NEUT % 63 % (31-73); PLATELET COUNT 236 x10^3/uL (140-400); RED BLOOD COUNT 4.66 x10^6/uL (4.30-5.70); RED CELL DISTRIBUTION WIDTH 12.4 % (11.5-14.5); WHITE BLOOD COUNT 4.9 x10^3/uL (4.0-11.0)
[2020-10-05 04:52] LABS: CALCIUM 9.2 mg/dL (8.5-10.1); GFR 79.1
[2020-10-05 04:58] LABS: ALBUMIN 3.4 g/dL (3.4-5.0); DIRECT BILIRUBIN 0.2 mg/dL (0.0-0.2); TOTAL BILIRUBIN 0.8 mg/dL (0.2-1.0); TOTAL PROTEIN 7.2 g/dL (6.4-8.2)
[2020-10-05 07:00] VITALS: BP 151/82
[2020-10-05] MEDS: IPRATRPIUM/ALBUTEROL 0.5/2.5MG 3 ML NEBU. NEB SCH ×3 (07:36→14:00)
[2020-10-05] MEDS ORDERED: NITROGLYCERIN SUBLINGUAL 0.4 MG BOTTLE OF 25. SL ONE (08:18)
[2020-10-05] MEDS: PANTOPRAZOLE 40 MG TABLET.DR. PO SCH (08:22)
[2020-10-05] MEDS ORDERED: NITROGLYCERIN SUBLINGUAL 0.4 MG BOTTLE OF 25. SL PRN (08:30)
--- NOTE | 2020-10-05 09:18 | CONS ---
DATE OF CONSULTATION: 10/05/2020 I was asked to see this 50-year-old gentleman for abnormal chest x-ray. HISTORY OF PRESENT ILLNESS: He does have history of [id number] smoking, continues to smoke a few cigarettes per day. He presented to the Emergency Room with chest pain. He was found to have blood pressure of 209/94. He denies shortness of breath. He does have occasional cough and sputum production. He has not had pulmonary function tests. He does snore and has multiple awakenings at night. He has not had a sleep study. He denies fever or chills. He feels heavy in the left chest area. Cardiology is consulted. His blood pressure was high last year, was started on medication, then it was stopped. PAST MEDICAL HISTORY: Hypertension, chronic back pain. ALLERGIES: No known drug allergies. MEDICATIONS: Currently, he is on nitroglycerin p.r.n., Lipitor, Lovenox, DuoNeb, Protonix, lorazepam. Norvasc 5 mg daily and hydralazine p.r.n. SOCIAL HISTORY: History of 10-jmoo-miqy smoking, continues to smoke a few cigarettes per day. FAMILY HISTORY: There is no history of lung disease. REVIEW OF SYSTEMS: As mentioned as above, other systems are otherwise negative. PHYSICAL EXAMINATION: GENERAL: He is not in distress, had chest pain, nitroglycerin was given to him by RN says his chest pain is better. VITAL SIGNS: Room air O2 saturation 98%, respiratory rate 16, heart rate 66, blood pressure 151/82, temperature 98.5. HEENT: Normocephalic, atraumatic. Pupils equal, round, reactive to light. There is shallow oropharynx, edentulous. Nose is clear. NECK: Short and thick. CARDIOVASCULAR: Regular rate and rhythm. PMI is nondisplaced. CHEST: Inspection is normal. LUNGS: Clear to auscultation. Percussion is within normal limit. ABDOMEN: Soft. Bowel sounds are good. There is no mass. EXTREMITIES: There is no edema. LYMPHATICS: There is no lymphadenopathy. NEUROLOGIC: Alert and oriented. SKIN: Warm. LABORATORY DATA: I reviewed the following lab data: Chest x-ray shows density in right lower lobe area. CT of the chest showed some atelectasis, scarring in right lower lobe area and emphysematous changes. WBC 7.9, hemoglobin 15, platelet 238. Sodium 141, potassium 5, chloride 103, CO2 of 29, BUN 9, creatinine 1, glucose 110. Troponin less than 0.01. Total bilirubin 0.8, AST 36, ALT 64, alkaline phosphatase 104. IMPRESSION: 1. Abnormal chest x-ray. I suspect that density is secondary to right lower lobe atelectasis/scarring, mild. 2. Smoker, emphysema, probable chronic obstructive pulmonary disease. 3. Smoker. 4. Snoring, probable obstructive sleep apnea-hypopnea syndrome. 5. Chest pain, workup in progress. 6. Hypertension. PLAN AND RECOMMENDATIONS: 1. Titrate FiO2 to keep O2 saturation 92%. 2. Continue bronchodilator. 3. Lovenox for DVT prophylaxis. 4. I had a long discussion with him regarding the smoking cessation. I have advised him to stop smoking forever. 5. Pulmonary function test as an outpatient. 6. Sleep study as an outpatient. 7. The findings and recommendations were discussed with the patient and RN. Thank you very much for allowing me to participate in care of this very nice gentleman. LEON COTO M.D. DR: DEE/aris JOB#: [id number] / [id number]
[2020-10-05 10:55] VITALS: BP 155/88
--- NOTE | 2020-10-05 11:03 | PDOC ---
PROGRESS NOTES Date of Service: DATE: 10/05/20 TIME: 11:03 Chief Complaint Chief Complaint HOSPITAL COURSE CONSULTS CARDIOLOGY, PULMONARY COMPLICATIONS NONE D/C CONDITION GOOD PROCEDURES CVC MONITORING, CT CHEST MEDS SEE MAR F/U DR PRESLEY ORA , PCP SOON NO SMOKING VTE Prophylaxis Ordered VTE Prophylaxis Devices: No VTE Pharmacological Prophylaxi: Yes discharge dx Assessment/Plan Impression: Chest pain COPD early emphysematous changes on ct chest UNCONTROLLED HTN 2 x 1 cm triangular linear density at the right lung base could represent a region of atelectasis/scarring, a pulmonary nodule is not excluded. ct chest planned inc LFT'S likely sec to etoh , with diffuse hepatic steatosis. hyperlipidemia ADMITTED cvc bed SERIAL TROPONIN I NEG CT CHEST Cardiology consult CT CHEST cardiac cath Dr Presley plans cath as out patient per RN Pulm consult dvt prophylaxis, lovenox PROTONIX 40 MG PO Q AM iv prn hydralazine 10mg q 4 hrs prn bp support estimte length of stay > 3 midnights begin lipitor 20 mg po q hs encouraged reduced etoh consumption and smoking cessation D/C PLANNING 35 MIN Justifications for Admission Justifications for Admission Other Justification History of Present Illness History of Present Illness Identification/Chief Complaint Chief Complaint 50 year old male with a past medical history of hypertension but currently on no antihypertensives presents with a chief complaint of chest pain. Patient states pain started approximately 1 hour prior to arrival. Patient describes pain as a dull 7 8 out of 10 left chest with radiation to left neck and down left arm. , some shortness of breath and some nausea but denied any diaphoresis. Patient called 911 EMS treated with Nitropaste and aspirin. Patient's initial blood pressure was greater than 200 systolic. 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 Current Problem List Problem List Problems Medical Problems: (1) Chest pain Status: Acute Current Medications Current Medications Current Medications Morphine Sulfate (Morphine Sulfate) 4 mg 1X ONCE IV Last administered on 10/03/20at 22:18; Start 10/03/20 at 22:15; Stop 10/03/20 at 22:16; Status DC Labetalol HCl (Normodyne Iv Push) 20 mg 1X ONCE IVP Last administered on 10/03/20at 22:19; Start 10/03/20 at 22:30; Stop 10/03/20 at 22:31; Status DC Ondansetron HCl (Zofran) 4 mg PRN Q8HRS PRN IV NAUSEA/VOMITING 1ST CHOICE; Start 10/03/20 at 22:30; Stop 10/04/20 at 22:29 Morphine Sulfate (Morphine Sulfate) 4 mg PRN Q2HR PRN IV SEVERE PAIN 7-10 Last administered on 10/04/20at 06:17; Start 10/03/20 at 22:30; Stop 10/04/20 at 22:29 Nitroglycerin (Nitrostat) 0.4 mg PRN Q5MIN PRN SL CHEST PAIN; Start 10/03/20 at 22:30; Stop 10/04/20 at 22:29 Amlodipine Besylate (Norvasc) 5 mg DAILY PO Last administered on 10/04/20at 08:38; Start 10/04/20 at 09:00 Active Scripts Active Reported No Known Medications Prior To Admisstion (Info) Each 1 Each DAILY Allergies Allergies: Coded Allergies: No Known Drug Allergies (Unverified , 06/25/17) ROS General: No: Chills, Night Sweats, Fatigue, Malaise, Appetite, Other PSYCHOLOGICAL ROS: No: Anxiety, Behavioral Disorder, Concentration difficultie, Decreased libido, Depression, Disorientation, Hallucinations, Hostility, Irritablity, Memory difficulties, Mood Swings, Obsessive thoughts, Physical abuse, Sexual abuse, Sleep disturbances, Suicidal ideation, Other Eyes: No Blurry vision, No Decreased vision, No Double vision, No Dry eyes, No Excessive tearing, No Eye Pain, No Itchy Eyes, No Loss of vision, No Photophobia, No Scotomata, No Uses contacts, No Uses glasses, No Other HEENT: No: Heacaches, Visual Changes, Hearing change, Nasal congestion, Nasal discharge, Oral lesions, Sinus pain, Sore Throat, Epistaxis, Sneezing, Snoring, Tinnitus, Vertigo, Vocal changes, Other ALLERGY AND IMMUNOLOGY: No: Hives, Insect Bite Sensitivity, Itchy/Watery Eyes, Nasal Congestion, Post Nasal Drip, Seasonal Allergies, Other Hematological and Lymphatic: No: Bleeding Problems, Blood Clots, Blood Transfusions, Brusing, Night Sweats, Pallor, Swollen Lymph Nodes, Other ENDOCRINE: No: Breast Changes, Galactorrhea, Hair Pattern Changes, Hot Flashes, Malaise/lethargy, Mood Swings, Palpitations, Polydipsia/polyuria, Skin Changes, Temperature Intolerance, Unexpected Weight Changes, Other Breast: No New/Changing Breast Lumps, No Nipple changes, No Nipple discharge, No Other Respiratory: No: Cough, Hemoptysis, Orthopnea, Pleuritic Pain, Shortness of breath, SOB with excertion, Sputum Changes, Stridor, Tachypnea, Wheezing, Other Cardiovascular: No Chest Pain, No Palpitations, No Orthopnea, No Paroxysmal N oc. Dyspnea, No Edema, No Lt Headedness, No Other Gastrointestinal: No Nausea, No Vomiting, No Abdominal Pain, No Diarrhea, No Constipation, No Melena, No Hematochezia, No Other Genitourinary: No Dysuria, No Frequency, No Incontinence, No Hematuria, No Retention, No Discharge, No Urgency, No Pain, No Flank Pain, No Other, No , No , No , No , No , No , No Musculoskeletal: Yes Pain In: (low back pain); No Gait Disturbance, No Joint Pain, No Joint Stiffness, No Joint Swelling, No Muscle Pain, No Muscular Weakness, No Swelling In:, No Other Neurological: No Behavorial Changes, No Bowel/Bladder ControlChng, No Confusion, No Dizziness, No Gait Disturbance, No Headaches, No Impaired Coord/balance, No Memory Loss, No Numbness/Tingling, No Seizures, No Speech Problems, No Tremors, No Visual Changes, No Weakness, No Other Skin: No Dry Skin, No Eczema, No Hair Changes, No Lumps, No Mole Changes, No Mottling, No Nail Changes, No Pruritus, No Rash, No Skin Lesion Changes, No Other, No Acne Vitals Vitals Vital Signs Date Time Temp Pulse Resp B/P (MAP) Pulse Ox O2 Delivery O2 Flow Rate FiO2 10/05/20 10:55 98.5 71 18 155/88 (110) 98 Room Air 98.5 Physical Exam Physical Exam Constitutional: Well developed, well nourished, no acute distress, non-toxic appearance. [] HENT: Normocephalic, atraumatic, bilateral external ears normal, oropharynx moist, no oral exudates, nose normal. [] Eyes: PERRLA, EOMI, conjunctiva normal, no discharge. [] Neck: Normal range of motion, no tenderness, supple, no stridor. [] Cardiovascular:Heart rate regular rhythm, no murmur [] Lungs & Thorax: Bilateral breath sounds clear to auscultation [] Abdomen: Bowel sounds normal, soft, no tenderness, no masses, no pulsatile masses. [] Skin: Warm, dry, no erythema, no rash. [] Back: No tenderness, no CVA tenderness. [] Extremities: No tenderness, no cyanosis, no clubbing, ROM intact, no edema. [] Neurologic: Alert and oriented X 3, normal motor function, normal sensory function, no focal deficits noted. [] Psychologic: Affect normal, judgment normal, mood normal. [] General: Alert, Oriented X3, Cooperative, No acute distress HEENT: Atraumatic, EOMI, Mucous membr. moist/pink Lungs: Clear to auscultation, Normal air movement Heart: RRR, no thrills Abdomen: Normal bowel sounds, Soft Rectal Exam: not examined, deferred PELVIC: Examination not indicated Extremities: No cyanosis Neuro: Normal speech, Cranial nerves 3-12 NL Psych/Mental Status: Mental status NL, Mood NL General: Alert, Oriented X3, Cooperative, No acute distress Heart: Regular rate, No murmurs Lungs: Clear Abdomen: Normal bowel sounds, Soft Extremities: No edema Labs LABS STATUS: ADM IN ORD. PHYSICIAN: DERIK GERMAIN MD REASON: chest pain PROCEDURE: CT CHEST WO CONTRAST EXAM: CT Chest without IV contrast INDICATION: Reason: chest pain / Spl. Instructions: / History: TECHNIQUE: Multi-detector row CT images were acquired from the thoracic inlet through the upper abdomen without the use of IV contrast. Sagittal and coronal images were acquired from the transaxial data. All CT scans performed at this facility utilize dose optimization techniques as appropriate to the exam, including the following: Automated exposure control and adjustment of the mA and/or KV according to patient size (this includes techniques or standardized protocols for targeted exams where dose is indication/reason for exam). COMPARISON: None FINDINGS: The absence of IV contrast limits evaluation of soft tissue pathology. CARDIOVASCULAR: Unremarkable MEDIASTINUM & HEAVENLY: No adenopathy or masses. LUNGS: Minimal early emphysematous changes and paraseptal pattern are present. Otherwise no pulmonary infiltrate, nodule, or other focal abnormality. PLEURAL SPACE: No pleural effusions or pneumothorax. OSSEOUS & SOFT TISSUE: Unremarkable ABDOMEN: Included upper abdomen shows diffuse hepatic steatosis. IMPRESSION: Minimal early emphysematous changes. Otherwise unremarkable noncontrast chest CT with no specific cause for chest pain identified. Incidental hepatic steatosis. Electronically signed by: Viktoria Choi MD (10/04/2020 7:02 PM) [facility] [place] Laboratory Tests Test 10/04/20 12:10 10/05/20 03:30 10/05/20 09:40 Troponin I Quantitative < 0.017 ng/mL (0.000-0.055) < 0.017 ng/mL (0.000-0.055) White Blood Count 4.9 x10^3/uL (4.0-11.0) Red Blood Count 4.66 x10^6/uL (4.30-5.70) Hemoglobin 15.5 g/dL (13.0-17.5) Hematocrit 45.5 % (39.0-53.0) Mean Corpuscular Volume 98 fL (79-100) Mean Corpuscular Hemoglobin 33 pg (25-35) Mean Corpuscular Hemoglobin Concent 34 g/dL (31-37) Red Cell Distribution Width 12.4 % (11.5-14.5) Platelet Count 236 x10^3/uL (140-400) Neutrophils (%) (Auto) 63 % (31-73) Lymphocytes (%) (Auto) 20 % (24-48) Monocytes (%) (Auto) 12 % (0-9) Eosinophils (%) (Auto) 5 % (0-3) Basophils (%) (Auto) 1 % (0-3) Neutrophils # (Auto) 3.1 x10^3/uL (1.8-7.7) Lymphocytes # (Auto) 1.0 x10^3/uL (1.0-4.8) Monocytes # (Auto) 0.6 x10^3/uL (0.0-1.1) Eosinophils # (Auto) 0.2 x10^3/uL (0.0-0.7) Basophils # (Auto) 0.0 x10^3/uL (0.0-0.2) Sodium Level 141 mmol/L (136-145) Potassium Level 5.0 mmol/L (3.5-5.1) Chloride Level 103 mmol/L (98-107) Carbon Dioxide Level 29 mmol/L (21-32) Anion Gap 9 (6-14) Blood Urea Nitrogen 9 mg/dL (8-26) Creatinine 1.0 mg/dL (0.7-1.3) Estimated GFR (Cockcroft-Gault) 79.1 Glucose Level 110 mg/dL (70-99) Calcium Level 9.2 mg/dL (8.5-10.1) Total Bilirubin 0.8 mg/dL (0.2-1.0) Direct Bilirubin 0.2 mg/dL (0.0-0.2) Aspartate Amino Transf (AST/SGOT) 36 U/L (15-37) Alanine Aminotransferase (ALT/SGPT) 64 U/L (16-63) Alkaline Phosphatase 104 U/L (46-116) Total Protein 7.2 g/dL (6.4-8.2) Albumin 3.4 g/dL (3.4-5.0) Assessment and Plan Assessmemt and Plan Problems Medical Problems: (1) Chest pain Status: Acute EXAM: CT Chest without IV contrast INDICATION: Reason: chest pain / Spl. Instructions: / History: TECHNIQUE: Multi-detector row CT images were acquired from the thoracic inlet through the upper abdomen without the use of IV contrast. Sagittal and coronal images were acquired from the transaxial data. All CT scans performed at this facility utilize dose optimization techniques as appropriate to the exam, including the following: Automated exposure control and adjustment of the mA and/or KV according to patient size (this includes techniques or standardized protocols for targeted exams where dose is indication/reason for exam). COMPARISON: None FINDINGS: The absence of IV contrast limits evaluation of soft tissue pathology. CARDIOVASCULAR: Unremarkable MEDIASTINUM & HEAVENLY: No adenopathy or masses. LUNGS: Minimal early emphysematous changes and paraseptal pattern are present. Otherwise no pulmonary infiltrate, nodule, or other focal abnormality. PLEURAL SPACE: No pleural effusions or pneumothorax. OSSEOUS & SOFT TISSUE: Unremarkable ABDOMEN: Included upper abdomen shows diffuse hepatic steatosis. IMPRESSION: Minimal early emphysematous changes. Otherwise unremarkable noncontrast chest CT with no specific cause for chest pain identified. Incidental hepatic steatosis. Electronically signed by: Viktoria Choi MD (10/04/2020 7:02 PM) [facility] Comment Review of Relevant I have reviewed the following items juan alberto (where applicable) has been applied. Labs Laboratory Tests Test 10/03/20 21:40 10/03/20 22:26 10/04/20 00:30 10/04/20 07:05 Sodium Level 138 mmol/L (136-145) Potassium Level 3.5 mmol/L (3.5-5.1) Chloride Level 102 mmol/L (98-107) Carbon Dioxide Level 27 mmol/L (21-32) Anion Gap 9 (6-14) Blood Urea Nitrogen 7 mg/dL (8-26) Creatinine 0.8 mg/dL (0.7-1.3) Estimated GFR (Cockcroft-Gault) 102.3 BUN/Creatinine Ratio 9 (6-20) Glucose Level 115 mg/dL (70-99) Calcium Level 9.1 mg/dL (8.5-10.1) Magnesium Level 1.8 mg/dL (1.8-2.4) Total Bilirubin 0.6 mg/dL (0.2-1.0) Aspartate Amino Transf (AST/SGOT) 71 U/L (15-37) Alanine Aminotransferase (ALT/SGPT) 88 U/L (16-63) Alkaline Phosphatase 103 U/L (46-116) Troponin I Quantitative < 0.017 ng/mL (0.000-0.055) < 0.017 ng/mL (0.000-0.055) < 0.017 ng/mL (0.000-0.055) Total Protein 7.4 g/dL (6.4-8.2) Albumin 3.8 g/dL (3.4-5.0) Albumin/Globulin Ratio 1.1 (1.0-1.7) White Blood Count 7.9 x10^3/uL (4.0-11.0) Red Blood Count 4.50 x10^6/uL (4.30-5.70) Hemoglobin 15.0 g/dL (13.0-17.5) Hematocrit 43.2 % (39.0-53.0) Mean Corpuscular Volume 96 fL (79-100) Mean Corpuscular Hemoglobin 33 pg (25-35) Mean Corpuscular Hemoglobin Concent 35 g/dL (31-37) Red Cell Distribution Width 12.4 % (11.5-14.5) Platelet Count 238 x10^3/uL (140-400) Neutrophils (%) (Auto) 78 % (31-73) Lymphocytes (%) (Auto) 11 % (24-48) Monocytes (%) (Auto) 9 % (0-9) Eosinophils (%) (Auto) 2 % (0-3) Basophils (%) (Auto) 1 % (0-3) Neutrophils # (Auto) 6.2 x10^3/uL (1.8-7.7) Lymphocytes # (Auto) 0.9 x10^3/uL (1.0-4.8) Monocytes # (Auto) 0.7 x10^3/uL (0.0-1.1) Eosinophils # (Auto) 0.1 x10^3/uL (0.0-0.7) Basophils # (Auto) 0.0 x10^3/uL (0.0-0.2) Prothrombin Time 11.8 SEC (11.7-14.0) Prothromb Time International Ratio 0.9 (0.8-1.1) Activated Partial Thromboplast Time 26 SEC (24-38) Triglycerides Level 59 mg/dL (0-150) Cholesterol Level 203 mg/dL (0-200) LDL Cholesterol, Calculated 83 mg/dL (0-100) VLDL Cholesterol, Calculated 12 mg/dL (0-40) Non-HDL Cholesterol Calculated 95 mg/dL (0-129) HDL Cholesterol 108 mg/dL (40-60) Cholesterol/HDL Ratio 1.9 Test 10/04/20 12:10 10/05/20 03:30 10/05/20 09:40 Troponin I Quantitative < 0.017 ng/mL (0.000-0.055) < 0.017 ng/mL (0.000-0.055) White Blood Count 4.9 x10^3/uL (4.0-11.0) Red Blood Count 4.66 x10^6/uL (4.30-5.70) Hemoglobin 15.5 g/dL (13.0-17.5) Hematocrit 45.5 % (39.0-53.0) Mean Corpuscular Volume 98 fL (79-100) Mean Corpuscular Hemoglobin 33 pg (25-35) Mean Corpuscular Hemoglobin Concent 34 g/dL (31-37) Red Cell Distribution Width 12.4 % (11.5-14.5) Platelet Count 236 x10^3/uL (140-400) Neutrophils (%) (Auto) 63 % (31-73) Lymphocytes (%) (Auto) 20 % (24-48) Monocytes (%) (Auto) 12 % (0-9) Eosinophils (%) (Auto) 5 % (0-3) Basophils (%) (Auto) 1 % (0-3) Neutrophils # (Auto) 3.1 x10^3/uL (1.8-7.7) Lymphocytes # (Auto) 1.0 x10^3/uL (1.0-4.8) Monocytes # (Auto) 0.6 x10^3/uL (0.0-1.1) Eosinophils # (Auto) 0.2 x10^3/uL (0.0-0.7) Basophils # (Auto) 0.0 x10^3/uL (0.0-0.2) Sodium Level 141 mmol/L (136-145) Potassium Level 5.0 mmol/L (3.5-5.1) Chloride Level 103 mmol/L (98-107) Carbon Dioxide Level 29 mmol/L (21-32) Anion Gap 9 (6-14) Blood Urea Nitrogen 9 mg/dL (8-26) Creatinine 1.0 mg/dL (0.7-1.3) Estimated GFR (Cockcroft-Gault) 79.1 Glucose Level 110 mg/dL (70-99) Calcium Level 9.2 mg/dL (8.5-10.1) Total Bilirubin 0.8 mg/dL (0.2-1.0) Direct Bilirubin 0.2 mg/dL (0.0-0.2) Aspartate Amino Transf (AST/SGOT) 36 U/L (15-37) Alanine Aminotransferase (ALT/SGPT) 64 U/L (16-63) Alkaline Phosphatase 104 U/L (46-116) Total Protein 7.2 g/dL (6.4-8.2) Albumin 3.4 g/dL (3.4-5.0) Laboratory Tests Test 10/04/20 12:10 10/05/20 03:30 10/05/20 09:40 Troponin I Quantitative < 0.017 ng/mL (0.000-0.055) < 0.017 ng/mL (0.000-0.055) White Blood Count 4.9 x10^3/uL (4.0-11.0) Red Blood Count 4.66 x10^6/uL (4.30-5.70) Hemoglobin 15.5 g/dL (13.0-17.5) Hematocrit 45.5 % (39.0-53.0) Mean Corpuscular Volume 98 fL (79-100) Mean Corpuscular Hemoglobin 33 pg (25-35) Mean Corpuscular Hemoglobin Concent 34 g/dL (31-37) Red Cell Distribution Width 12.4 % (11.5-14.5) Platelet Count 236 x10^3/uL (140-400) Neutrophils (%) (Auto) 63 % (31-73) Lymphocytes (%) (Auto) 20 % (24-48) Monocytes (%) (Auto) 12 % (0-9) Eosinophils (%) (Auto) 5 % (0-3) Basophils (%) (Auto) 1 % (0-3) Neutrophils # (Auto) 3.1 x10^3/uL (1.8-7.7) Lymphocytes # (Auto) 1.0 x10^3/uL (1.0-4.8) Monocytes # (Auto) 0.6 x10^3/uL (0.0-1.1) Eosinophils # (Auto) 0.2 x10^3/uL (0.0-0.7) Basophils # (Auto) 0.0 x10^3/uL (0.0-0.2) Sodium Level 141 mmol/L (136-145) Potassium Level 5.0 mmol/L (3.5-5.1) Chloride Level 103 mmol/L (98-107) Carbon Dioxide Level 29 mmol/L (21-32) Anion Gap 9 (6-14) Blood Urea Nitrogen 9 mg/dL (8-26) Creatinine 1.0 mg/dL (0.7-1.3) Estimated GFR (Cockcroft-Gault) 79.1 Glucose Level 110 mg/dL (70-99) Calcium Level 9.2 mg/dL (8.5-10.1) Total Bilirubin 0.8 mg/dL (0.2-1.0) Direct Bilirubin 0.2 mg/dL (0.0-0.2) Aspartate Amino Transf (AST/SGOT) 36 U/L (15-37) Alanine Aminotransferase (ALT/SGPT) 64 U/L (16-63) Alkaline Phosphatase 104 U/L (46-116) Total Protein 7.2 g/dL (6.4-8.2) Albumin 3.4 g/dL (3.4-5.0) Medications Current Medications Morphine Sulfate (Morphine Sulfate) 4 mg 1X ONCE IV Last administered on 10/03/20at 22:18; Start 10/03/20 at 22:15; Stop 10/03/20 at 22:16; Status DC Labetalol HCl (Normodyne Iv Push) 20 mg 1X ONCE IVP Last administered on 10/03/20at 22:19; Start 10/03/20 at 22:30; Stop 10/03/20 at 22:31; Status DC Ondansetron HCl (Zofran) 4 mg PRN Q8HRS PRN IV NAUSEA/VOMITING 1ST CHOICE; Start 10/03/20 at 22:30; Stop 10/04/20 at 22:29; Status DC Morphine Sulfate (Morphine Sulfate) 4 mg PRN Q2HR PRN IV SEVERE PAIN 7-10 Last administered on 10/04/20at 06:17; Start 10/03/20 at 22:30; Stop 10/04/20 at 22:29; Status DC Nitroglycerin (Nitrostat) 0.4 mg PRN Q5MIN PRN SL CHEST PAIN Last administered on 10/04/20at 14:03; Start 10/03/20 at 22:30; Stop 10/04/20 at 22:29; Status DC Amlodipine Besylate (Norvasc) 5 mg DAILY PO Last administered on 10/05/20at 08:22; Start 10/04/20 at 09:00 Hydralazine HCl (Apresoline Inj) 10 mg PRN Q4HRS PRN IVP ELEVATED BP, SEE COMMENTS Last administered on 10/04/20at 12:07; Start 10/04/20 at 11:30 Sodium Chloride (Normal Saline Flush) 3 ml QSHIFT PRN IV AFTER MEDS AND BLOOD DRAWS; Start 10/04/20 at 11:30 Ondansetron HCl (Zofran) 4 mg PRN Q4HRS PRN IV NAUSEA/VOMITING; Start 10/04/20 at 11:30 Acetaminophen (Tylenol) 650 mg PRN Q4HRS PRN PO TEMP OVER 100.4F OR MILD PAIN; Start 10/04/20 at 11:30 Al Hydroxide/Mg Hydroxide (Mylanta Plus Xs) 30 ml PRN DAILY PRN PO HEARTBURN / GAS; Start 10/04/20 at 11:30 Clonidine HCl (Catapres) 0.1 mg PRN Q6HRS PRN PO SBP>160 OR DBP>90; Start 10/04/20 at 11:30 Sodium Monofluorophosphate (Fleet Adult) 133 ml PRN DAILY PRN NE CONSTIPATION; Start 10/04/20 at 11:30 Docusate Sodium (Colace) 100 mg PRN BID PRN PO HARD STOOLS; Start 10/04/20 at 11:30 Albuterol/ Ipratropium (Duoneb) 3 ml Q4HRS W/A NEB Last administered on 10/05/20at 07:36; Start 10/04/20 at 14:00 Guaifenesin (Robitussin) 200 mg PRN Q4HRS PRN PO COUGH; Start 10/04/20 at 11:30 Lorazepam (Ativan) 0.5 mg PRN Q4HRS PRN PO ANXIETY / AGITATION Last administered on 10/04/20at 21:25; Start 10/04/20 at 11:30 Enoxaparin Sodium (Lovenox 40mg Syringe) 40 mg Q24H SQ Last administered on 10/04/20at 17:06; Start 10/04/20 at 16:00 Pantoprazole Sodium (Protonix) 40 mg DAILYAC PO Last administered on 10/05/20at 08:22; Start 10/04/20 at 12:00 Atorvastatin Calcium (Lipitor) 20 mg QHS PO Last administered on 10/04/20at 21:25; Start 10/04/20 at 21:00 Nitroglycerin (Nitrostat) 0.4 mg STK-MED ONCE SL ; Start 10/05/20 at 08:18; Stop 10/05/20 at 08:19; Status DC Nitroglycerin (Nitrostat) 0.4 mg PRN Q5MIN PRN SL CHEST PAIN; Start 10/05/20 at 08:30 Active Scripts Active Reported No Known Medications Prior To Admisstion (Info) Each 1 Each DAILY Vitals/I & O Vital Sign - Last 24 Hours 10/04/20 10/04/20 10/04/20 10/04/20 11:15 12:07 13:38 14:00 Temp 98.6 98.6 Pulse 56 65 73 Resp 16 B/P (MAP) 172/88 (116) 169/88 158/85 Pulse Ox 96 O2 Delivery Room Air Room Air 10/04/20 10/04/20 10/04/20 10/04/20 14:03 14:32 16:08 19:05 Temp 98.6 99.1 98.6 99.1 Pulse 62 69 61 Resp 18 17 B/P (MAP) 178/87 146/94 (111) 162/80 (107) Pulse Ox 97 98 98 O2 Delivery Room Air Room Air Room Air 10/04/20 10/04/20 10/04/20 10/05/20 19:51 20:00 23:12 03:30 Temp 98.7 98.9 98.7 98.9 Pulse 69 80 Resp 16 18 B/P (MAP) 143/86 (105) 162/90 (114) Pulse Ox 96 98 98 O2 Delivery Room Air Room Air Room Air Room Air 10/05/20 10/05/20 10/05/20 10/05/20 07:00 07:37 08:00 08:22 Temp 98.5 98.5 Pulse 66 66 Resp 16 B/P (MAP) 151/82 (105) 151/82 Pulse Ox 96 98 O2 Delivery Room Air Room Air Room Air 10/05/20 10:55 Temp 98.5 98.5 Pulse 71 Resp 18 B/P (MAP) 155/88 (110) Pulse Ox 98 O2 Delivery Room Air Intake and Output 10/04/20 10/04/20 10/05/20 15:00 23:00 07:00 Intake Total 360 ml 235 ml 440 ml Output Total 875 ml 520 ml Balance -515 ml -285 ml 440 ml Justicifation of Admission Dx: Justifications for Admission: Justification of Admission Dx: No Angina: [place] Worsening of Sym DERIK GERMAIN MD Oct 05, 2020 11:03
[2020-10-05] MEDS ORDERED: DOCU-153 PO (12:20)
[2020-10-05] MEDS ORDERED: PANT40TA77 PO (12:20)
[2020-10-05] MEDS ORDERED: NITR0.4T24 SL (12:20)
[2020-10-05] MEDS ORDERED: ATOR20TA58 PO (12:20)
[2020-10-05] MEDS ORDERED: AMLO-186 PO (12:20)
--- NOTE | 2020-10-05 12:22 | DISCH ---
DISCHARGE INSTRUCTIONS Condition on Discharge Condition on Discharge: Stable Activity After Discharge Activity Instructions for Disc: Activity as tolerated Lifting Instructions after Dis: No heavy lifting, No pulling or pushing Driving Instructions after Dis: Do not drive today Diet after Discharge Diet after Discharge: Cardiac Liquid Texture: Thin Liquid Checks after Discharge Checks after discharge: Check blood press - daily Contacting the after DC Call your doctor for: If your condition worsens Follow-Up Follow up with: DR FERNANDEZ PAYAN, PCP [facility],, NO SMOKING Treatment/Equipment after DC Adaptive Equipment Issued: None DERIK GERMAIN MD Oct 05, 2020 12:22
--- NOTE | 2020-10-05 12:28 | PDOC ---
PROGRESS NOTES Date of Service: DATE: 10/05/20 TIME: 12:27 Subjective Subjective Had few more episodes of atypical chest pain Objective Objective Vital Signs Date Time Temp Pulse Resp B/P (MAP) Pulse Ox O2 Delivery O2 Flow Rate FiO2 10/05/20 11:23 Room Air 10/05/20 10:55 98.5 71 18 155/88 (110) 98 98.5 Intake and Output 10/05/20 07:00 Intake Total 1035 ml Output Total 1395 ml Balance -360 ml Intake Oral 1035 ml Output Urine Total 1395 ml # Voids 3 Physical Exam Abdomen: Normal bowel sounds, Soft Heart: Regular rate, No murmurs Extremities: No edema General: Alert, Oriented X3, Cooperative, No acute distress HEENT: Atraumatic Lungs: Clear to auscultation Neuro: Normal speech, Cranial nerves 3-12 NL Psych/Mental Status: Mood NL Assessment Assessment 1. Accelerated hypertension: Patient has remote history of hypertension and was treated with antihypertensives that were stopped for uncertain reasons in the interim. Blood pressure better controlled with amlodipine. We will increase the dose to 10 mg to optimize treatment. Plan 2D echo to assess LV systolic function -could be done as an outpatient. 2. Chest pain with mixed features. Myocardial infarction has been ruled out. Plan for ischemic evaluation with exercise stress echo as an outpatient. Plan Plan of Care Problems Medical Problems: (1) Chest pain Status: Acute Comment Review of Relevant I have reviewed the following items juan alberto (where applicable) has been applied. Labs Laboratory Tests Test 10/05/20 03:30 10/05/20 09:40 White Blood Count 4.9 x10^3/uL (4.0-11.0) Red Blood Count 4.66 x10^6/uL (4.30-5.70) Hemoglobin 15.5 g/dL (13.0-17.5) Hematocrit 45.5 % (39.0-53.0) Mean Corpuscular Volume 98 fL (79-100) Mean Corpuscular Hemoglobin 33 pg (25-35) Mean Corpuscular Hemoglobin Concent 34 g/dL (31-37) Red Cell Distribution Width 12.4 % (11.5-14.5) Platelet Count 236 x10^3/uL (140-400) Neutrophils (%) (Auto) 63 % (31-73) Lymphocytes (%) (Auto) 20 % (24-48) Monocytes (%) (Auto) 12 % (0-9) Eosinophils (%) (Auto) 5 % (0-3) Basophils (%) (Auto) 1 % (0-3) Neutrophils # (Auto) 3.1 x10^3/uL (1.8-7.7) Lymphocytes # (Auto) 1.0 x10^3/uL (1.0-4.8) Monocytes # (Auto) 0.6 x10^3/uL (0.0-1.1) Eosinophils # (Auto) 0.2 x10^3/uL (0.0-0.7) Basophils # (Auto) 0.0 x10^3/uL (0.0-0.2) Sodium Level 141 mmol/L (136-145) Potassium Level 5.0 mmol/L (3.5-5.1) Chloride Level 103 mmol/L (98-107) Carbon Dioxide Level 29 mmol/L (21-32) Anion Gap 9 (6-14) Blood Urea Nitrogen 9 mg/dL (8-26) Creatinine 1.0 mg/dL (0.7-1.3) Estimated GFR (Cockcroft-Gault) 79.1 Glucose Level 110 mg/dL (70-99) Calcium Level 9.2 mg/dL (8.5-10.1) Total Bilirubin 0.8 mg/dL (0.2-1.0) Direct Bilirubin 0.2 mg/dL (0.0-0.2) Aspartate Amino Transf (AST/SGOT) 36 U/L (15-37) Alanine Aminotransferase (ALT/SGPT) 64 U/L (16-63) Alkaline Phosphatase 104 U/L (46-116) Total Protein 7.2 g/dL (6.4-8.2) Albumin 3.4 g/dL (3.4-5.0) Troponin I Quantitative < 0.017 ng/mL (0.000-0.055) Medications Current Medications Albuterol/ Ipratropium (Duoneb) 3 ml Q4HRS W/A NEB Last administered on 10/05/20at 11:23; Start 10/04/20 at 14:00 Atorvastatin Calcium (Lipitor) 20 mg QHS PO Last administered on 10/04/20at 21:25; Start 10/04/20 at 21:00 Enoxaparin Sodium (Lovenox 40mg Syringe) 40 mg Q24H SQ Last administered on 10/04/20at 17:06; Start 10/04/20 at 16:00 Nitroglycerin (Nitrostat) 0.4 mg PRN Q5MIN PRN SL CHEST PAIN; Start 10/05/20 at 08:30 Nitroglycerin (Nitrostat) 0.4 mg STK-MED ONCE SL ; Start 10/05/20 at 08:18; Stop 10/05/20 at 08:19; Status DC Vitals/I & O Vital Sign - Last 24 Hours 10/04/20 10/04/20 10/04/20 10/04/20 13:38 14:00 14:03 14:32 Temp 98.6 98.6 Pulse 73 62 69 Resp 18 B/P (MAP) 158/85 178/87 146/94 (111) Pulse Ox 97 O2 Delivery Room Air Room Air 10/04/20 10/04/20 10/04/20 10/04/20 16:08 19:05 19:51 20:00 Temp 99.1 99.1 Pulse 61 Resp 17 B/P (MAP) 162/80 (107) Pulse Ox 98 98 96 O2 Delivery Room Air Room Air Room Air Room Air 10/04/20 10/05/20 10/05/20 10/05/20 23:12 03:30 07:00 07:37 Temp 98.7 98.9 98.5 98.7 98.9 98.5 Pulse 69 80 66 Resp 16 18 16 B/P (MAP) 143/86 (105) 162/90 (114) 151/82 (105) Pulse Ox 98 98 96 98 O2 Delivery Room Air Room Air Room Air Room Air 10/05/20 10/05/20 10/05/20 10/05/20 08:00 08:22 10:55 11:23 Temp 98.5 98.5 Pulse 66 71 Resp 18 B/P (MAP) 151/82 155/88 (110) Pulse Ox 98 O2 Delivery Room Air Room Air Room Air Intake and Output 10/04/20 10/04/20 10/05/20 15:00 23:00 07:00 Intake Total 360 ml 235 ml 440 ml Output Total 875 ml 520 ml Balance -515 ml -285 ml 440 ml FAWN VENEGAS MD Oct 05, 2020 12:28
[2020-10-05] MEDS ORDERED: AMLO10TA4 PO (15:05)
[2020-10-05] MEDS: ENOXAPARIN 40 MG/0.4 ML SYRINGE. SQ SCH (16:00)
--- NOTE | 2020-10-05 18:33 | NUR ---
Discharge Note: RUTH MANCINI Discharge instructions and discharge home medications reviewed with Patient and a copy given. All questions have been answered and understanding verbalized. The following instructions and handouts were given: CP, smoking cessation, and cardiac diet. Discontinued iv line and catheter intact. Patient discharged to home with self-care via [facility].
== END 2020-10-05 18:35 | disposition home or self-care (01) ==
LOC: ER 21:24 → 2 SOUTH 22:43
PROVIDERS: ADMIT Family Medicine; ATTEND Family Medicine
DX: R07.89 Other chest pain (principal); J43.9 Emphysema, unspecified; I10 Essential (primary) hypertension; K76.0 Fatty (change of) liver, not elsewhere classified; G47.33 Obstructive sleep apnea (adult) (pediatric); E78.5 Hyperlipidemia, unspecified; F17.210 Nicotine dependence, cigarettes, uncomplicated; M54.9 Dorsalgia, unspecified; G89.29 Other chronic pain; Z79.899 Other long term (current) drug therapy; Z98.890 Other specified postprocedural states
CPT/HCPCS: 36415; 71045; 71250; 80048; 80053; 80061; 80076; 83735; 84484; 85025; 85610; 85730; 93005; 94640; 94760; 96372; 96374; 96375; 96376; 99285; G0378; J0360; J1650; J2270; J3490; G0379